=== PATIENT | female | born 1990 | race Caucasian/White ===

== ENCOUNTER 2019-04-18 10:32 | Emergency (ER) | payer MEDICAID ==
[~2019-04-18] VITALS: Ht 165.1 cm; Wt 53.5 kg
[2019-04-18] MEDS ORDERED: SODIUM CHLORIDE 0.9% 1,000 ML IVB ONE (10:59)
[2019-04-18] MEDS ORDERED: PANTOPRAZOLE 40 MG/10 ML VIAL INJ IV STA (10:59)
[2019-04-18] MEDS ORDERED: MORPHINE SULFATE 4 MG/ML SYR/VIAL IV ONE (11:00)
[2019-04-18] MEDS ORDERED: PROCHLORPERAZINE EDISYLATE 5 MG/ML 2ML VIAL IV ONE (11:00)
[2019-04-18 11:31] LABS: Basophils # (auto) 0.1 uL; Basophils % (auto) 1.3 % (0.0-2.0); Eosinophils # (auto) 0 uL; Eosinophils % (auto) 0.5 % (0.0-7.0); Hematocrit 42.3 % (36.0-46.0); Hemoglobin 14.6 g/dL (12.2-16.2); Lymphocytes # (auto) 1.8 uL; Lymphocytes % (auto) 33.8 % (10.0-50.0); Mean Corpuscular Hemoglobin 30.9 pg (28.0-32.0); Mean Corpuscular Hgb Conc. 34.6 g/dL (32.0-36.0); Mean Corpuscular Volume 89.5 fL (80.0-100.0); Monocytes # (auto) 0.3 uL; Monocytes % (auto) 5.2 % (0.0-12.0); Neutrophils # (auto) 3.2 uL; Neutrophils % (auto) 59.2 % (37.0-80.0); Platelet Count (auto) 161 10^3/uL (140-450); Red Blood Cells 4.73 10^6/uL (4.0-5.20); Red Cell Distribution Width 12.4 % (11.8-14.3); White Blood Cell 5.4 10^3/uL (4.4-10.8)
[2019-04-18 11:46] LABS: Albumin 4.2 g/dL (3.4-5.0); Calcium 9.3 mg/dL (8.5-10.1); Potassium 3.6 mmol/L (3.5-5.1)
[2019-04-18 11:52] LABS: BUN/Creatinine Ratio 11.1; Total Protein 7.4 g/dL (6.4-8.2)
[2019-04-18 13:00] VITALS: BP 106/65
== END 2019-04-18 14:19 | disposition home or self-care (01) ==
LOC: ER 10:32
DX: F12.188 Cannabis abuse with other cannabis-induced disorder (principal); R11.2 Nausea with vomiting, unspecified; R10.31 Right lower quadrant pain
CPT/HCPCS: 36415; 80053; 83690; 84702; 85025; 94761; 96361; 96374; 96375; 99283; J0780; J2270; J7030